=== PATIENT | female | born 1975 | race Caucasian/White ===

== ENCOUNTER → 2018-01-01 | Outpatient (CLI) | payer BC ==
[~2018-01-01] MED LIST: ATIVAN0.5 MG PO; FLEXERIL5 MG PO; LEXAPRO5 MG PO; MEDROL 4MG DOSPA4 MG PO; MOTRIN 800800 MG/TAB PO; NO HOME MEDICATIONS; VICODIN 5/5001 UDTAB PO; ZOFRAN4 MG PO
== END ==
LOC: MC.RAD 12:49
DX: Z12.31 Encounter for screening mammogram for malignant neoplasm of breast (principal)

== ENCOUNTER → 2019-01-02 | Outpatient (CLI) | payer BC | LOC: MC.RAD 09:57 | DX: Z12.31 Encounter for screening mammogram for malignant neoplasm of breast (principal) ==

== ENCOUNTER → 2019-05-19 | Outpatient (CLI) | payer BC | LOC: COL.RAD 08:57 | DX: R10.2 Pelvic and perineal pain (principal) ==

== ENCOUNTER 2019-06-04 06:39 | Day surgery (SDC) | payer BC ==
[~2019-06-04] VITALS: Ht 160 cm; Wt 66.0 kg
[2019-06-04] MEDS ORDERED: PREDNISONE 5MG5 MG PO (07:05)
[2019-06-04] MEDS ORDERED: ZOLOFT 25MG25 MG PO (07:07)
[2019-06-04 07:47] VITALS: BP 112/75; PULSE 56; TEMP 98.1
[2019-06-04 08:35] VITALS: BP 119/66; PULSE 40; TEMP 97.9
--- NOTE | 2019-06-04 08:35 | NUR ---
Pt to [facility] via cart from [facility]. Pt awake and alert. Ambulates to recliner via stand by assist x2. Coffee and muffin provided. in room. Warm blanket given. Call light within reach. Will continue to monitor.
[2019-06-04 08:50] VITALS: BP 116/76; PULSE 47
--- NOTE | 2019-06-04 08:50 | NUR ---
Pt tolerating food and fluids without diffiuclties. into consult with pt. Call light within reach.
[2019-06-04 09:05] VITALS: BP 118/66; PULSE 54
--- NOTE | 2019-06-04 09:05 | NUR ---
Discharge instructions reviewed. Pt voices understanding. IV site discontinued with all parts intact. Pt up to dress. Call light within reach.
--- NOTE | 2019-06-04 09:15 | NUR ---
Pt escorted to private car via wheel chair. Pt accompanied home by her .
== END 2019-06-04 09:15 | disposition home or self-care (01) ==
LOC: SDCO 06:39
DX: K63.5 Polyp of colon (principal); K62.89 Other specified diseases of anus and rectum; K51.911 Ulcerative colitis, unspecified with rectal bleeding; K59.00 Constipation, unspecified; Z87.891 Personal history of nicotine dependence
CPT/HCPCS: J2250; J2405; J3010; J7030

== ENCOUNTER → 2020-01-05 | Outpatient (CLI) | payer BC ==
[~2020-01-05] MED LIST changes: +PREDNISONE 5MG5 MG PO; +ZOLOFT 25MG25 MG PO
== END ==
LOC: MC.RAD 09:30
DX: Z12.31 Encounter for screening mammogram for malignant neoplasm of breast (principal); N64.89 Other specified disorders of breast

== ENCOUNTER → 2020-01-14 | Outpatient (CLI) | payer BC | LOC: MC.RAD 13:00 | DX: N64.89 Other specified disorders of breast (principal) ==

== ENCOUNTER 2020-06-17 13:54 | Emergency (ER) | payer BC ==
[~2020-06-17] VITALS: Ht 160 cm; Wt 65.9 kg
[2020-06-17 14:06] VITALS: TEMP 98
[2020-06-17] MEDS ORDERED: KLONOPIN 0.5MG0.5 MG (14:20)
[2020-06-17 14:50] LABS: BASO % 0.3 % (0.0-2.0); EOS % 0.3 % (0-4.0); GRAN # 6.5 (1.4-6.5); GRAN % 75.3 % (42.2-75.2); HEMATOCRIT 42.1 % (37.0-47.0); LYMPH # 1.5 (1.2-3.4); LYMPH % 17.2 % (20.0-51.0); MEAN CELL VOLUME 91 fl (80.0-100.0); MEAN CORPUSCULAR HEMOGLOBIN 30 pg (27.0-31.0); MEAN CORPUSCULAR HGB CONC 33 g/dl (33.0-37.0); MEAN PLATELET VOLUME 9.7 fl (7.4-10.4); MONO # 0.6 (0.1-0.6); MONO % 6.6 % (1.7-9.3); PLATELET COUNT 278 K/mm3 (130-400); RED BLOOD COUNT 4.63 M/mm3 (4.10-5.30); REDCELL DISTRIBUTION WIDTH-CV 13.2 % (11.5-14.5)
[2020-06-17 15:01] LABS: ALBUMIN 4.4 gm/dL (3.5-5.0); BILIRUBIN,TOTAL 0.5 mg/dL (0.0-1.0); CALCIUM 9.6 mg/dL (8.4-10.2); CREATININE, serum 0.66 (0.52-1.25); MAGNESIUM 1.9 mg/dL (1.6-2.3); POTASSIUM 3.6 mmol/L (3.4-5.0); TOTAL PROTEIN 7.5 gm/dL (6.4-8.2)
[2020-06-17 15:31] LABS: TSH w REFLEX 1.82 uIU/mL (0.465-4.680)
[2020-06-17 16:52] VITALS: BP 121/67; PULSE 68
== END 2020-06-17 16:52 | disposition home or self-care (01) ==
LOC: COL.ER 13:54
PROVIDERS: Emergency Medicine
DX: R55 Syncope and collapse (principal)
CPT/HCPCS: J7030

== ENCOUNTER → 2021-01-18 | Outpatient (CLI) | payer BC ==
[~2021-01-18] MED LIST changes: +KLONOPIN 0.5MG0.5 MG
== END ==
LOC: MC.RAD 11:16
DX: Z12.31 Encounter for screening mammogram for malignant neoplasm of breast (principal); Z95.818 Presence of other cardiac implants and grafts

== ENCOUNTER → 2022-01-31 | Outpatient (CLI) | payer OTHER | LOC: MC.RAD 09:11 | DX: Z12.31 Encounter for screening mammogram for malignant neoplasm of breast (principal) ==

== ENCOUNTER → 2022-07-03 | Outpatient (CLI) | payer OTHER | LOC: COL.RAD 09:04 | DX: R13.10 Dysphagia, unspecified (principal) ==

== ENCOUNTER → 2022-10-05 | Outpatient (CLI) | payer OTHER | LOC: COL.RAD 12:33 | DX: R10.2 Pelvic and perineal pain (principal) ==

== ENCOUNTER → 2024-02-04 | Outpatient (CLI) | payer OTHER | LOC: MC.RAD 15:00 | DX: Z12.31 Encounter for screening mammogram for malignant neoplasm of breast (principal) ==